=== PATIENT | male | born 1980 | race Caucasian/White ===

== ENCOUNTER 2018-07-26 11:58 | Emergency (ER) | payer BC ==
[2018-07-26] MEDS ORDERED: Sodium Chloride 0.9% 1,000 ML IV ONE (12:12)
--- NOTE | 2018-07-26 12:13 | EDM.PDOC ---
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 It is not a squeezing or pain, just discomfort, Pt said. He drinks power drinks and coffee and some water daily. All symptoms subsided except his left arm discomfort, which is minor. BP 136/68 RR 20- Pulse ox 98% on RA, Temp 36.8 pulse 87 Onset Date: 07/26/18 Onset Time: 11:00 Duration: Minutes: (10 sec), Improving Location: Reports: Head, Upper Extremity, Left (spots with discomfort is changing the location) Quality: Reports: Dull Severity: Mild Improves with: Reports: None Worsens with: Reports: None Associated Symptoms: Reports: Other (dizzy for 10 sec) - Related Data Allergies Allergy/AdvReac Type Severity Reaction Status Date / Time No Known Allergies Allergy Verified 07/26/18 12:14 Home Meds: Home Meds Omeprazole 20 mg PO DAILY 04/17/14 [History] Meclizine [Antivert] 25 mg PO Q6H PRN #14 tab.chew 07/26/18 [Rx] ED ROS GENERAL - Review of Systems Review Of Systems: See Below Constitutional: Reports: No Symptoms HEENT: Reports: No Symptoms Respiratory: Reports: No Symptoms Cardiovascular: Reports: No Symptoms Endocrine: Reports: No Symptoms GI/Abdominal: Reports: No Symptoms : Reports: No Symptoms Musculoskeletal: Reports: Muscle Pain (discomfort) Skin: Reports: No Symptoms Neurological: Reports: 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) Psychiatric: Reports: No Symptoms Hematologic/Lymphatic: Reports: No Symptoms Immunologic: Reports: No Symptoms ED EXAM, GENERAL - Physical Exam Exam: See Below Exam Limited By: No Limitations General Appearance: Alert, WD/WN, Mild Distress Eye Exam: Bilateral Eye: Nystagmus (bilat ) Ears: Normal External Exam Ear Exam: Bilateral Ear: Auricle Normal Nose: Normal Inspection, Normal Mucosa, No Blood Throat/Mouth: Normal Inspection, Normal Lips, Normal Voice, No Airway Compromise Head: Atraumatic, Normocephalic Neck: Normal Inspection, Supple, Non-Tender, Full Range of Motion Respiratory/Chest: No Respiratory Distress, Lungs Clear, Normal Breath Sounds, Chest Non-Tender, Respiratory Distress Cardiovascular: Normal Peripheral Pulses, Regular Rate, Rhythm, No Edema, No Gallop, No JVD, No Murmur, No Rub GI/Abdominal: Normal Bowel Sounds, Soft, Non-Tender, No Organomegaly, No Distention, No Abnormal Bruit, No Mass, Pelvis Stable (Male) Exam: No Hernia Rectal (Males) Exam: Deferred Back Exam: Normal Inspection Extremities: Normal Inspection Neurological: Alert, Oriented, CN II-XII Intact, Normal Cognition, Normal Gait Psychiatric: Normal Affect, Normal Mood Skin Exam: Warm, Dry, Intact, Normal Color, No Rash Lymphatic: No Adenopathy EKG INTERPRETATION EKG Date: 07/26/18 Time: 12:15 Rhythm: NSR Rate (Beats/Min): 89 [place]: Normal P-Wave: Present QRS: Normal ST-T: Normal QT: Normal Comparison: NA - No Prior EKG Course - Vital Signs Text/Narrative:: 37 y.o.w.m in prev healthy condition came initially to the walk in clinic and was transferred to the ed to to an episode of dizziness, lasting 10 sec 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 It is not a squeezing or pain, just discomfort, Pt said. He drinks power drinks and coffee and some water daily. All symptoms subsided except his left arm discomfort, which is minor. BP 136/68 RR 20- Pulse ox 98% on RA, Temp 36.8 pulse 87 PE: WNWD W M in NAD with minimal left arm discomfort localized, "moving". nl neuroexam and bilateral nystagmus Labs: CBC nl BMP nl execept BUN is 24. Glc 129 Troponin was nl ECG: NSR Impression: Dehydration, Viral syndrome, Vertigo Tx: NS, Antivert Reexam: Improved 80%, was ambulating fine on D/C Plan: D/C with instructions Last Recorded V/S: Last Vital Signs Temp 36.9 C 07/26/18 13:50 Pulse 78 07/26/18 13:50 Resp 18 07/26/18 13:50 BP 135/68 07/26/18 13:50 Pulse Ox 98 07/26/18 13:50 - Orders/Labs/Meds Orders: Active Orders 24 hr Category Date Time Status EKG 12 Lead [EK] Routine Ther 07/26/18 12:10 Ordered Labs: Laboratory Tests 07/26/18 07/26/18 07/26/18 Range/Units 12:15 12:15 12:15 WBC 7.7 (4.5-12.0) X10-3/uL RBC 5.56 (4.30-5.75) x10(6)uL Hgb 16.1 H (11.5-15.5) g/dL Hct 47.5 (30.0-51.3) % MCV 85.5 (80-96) fL MCH 29.0 (27.7-33.6) pg MCHC 33.9 (32.2-35.4) g/dL RDW 13.0 (11.5-15.5) % Plt Count 243 (125-369) X10(3)uL MPV 7.0 L (7.4-10.4) fL Neut % (Auto) 63.3 (46-82) % Lymph % (Auto) 30.0 (13-37) % [place] % (Auto) 4.5 (4-12) % Eos % (Auto) 2 (1.0-5.0) % Baso % (Auto) 0 (0-2) % Neut # (Auto) 5.0 (1.6-8.3) # Lymph # (Auto) 2.3 (0.6-5.0) # [place] # (Auto) 0.3 (0.0-1.3) # Eos # (Auto) 0.1 (0.0-0.8) # Baso # (Auto) 0.0 (0.0-0.2) # D-Dimer, Quantitative (0.0-0.59) mg/LFEU Sodium 141 (135-145) mmol/L Potassium 3.7 (3.5-5.3) mmol/L Chloride 104 (100-110) mmol/L Carbon Dioxide 30 (21-32) mmol/L BUN 24 H (7-18) mg/dL Creatinine 1.2 (0.70-1.30) mg/dL Est Cr Clr Drug Dosing TNP Estimated GFR (MDRD) > 60 (>60) BUN/Creatinine Ratio 20.0 (9-20) Glucose 129 H (80-116) mg/dL Lactic Acid 1.3 (0.4-2.2) mmol/L Calcium 9.2 (8.6-10.2) mg/dL Magnesium 2.0 (1.8-2.5) mg/dL Troponin I (<0.017-0.056) ng/mL Ethyl Alcohol (<0.03) % 07/26/18 07/26/18 Range/Units 12:15 12:15 WBC (4.5-12.0) X10-3/uL RBC (4.30-5.75) x10(6)uL Hgb (11.5-15.5) g/dL Hct (30.0-51.3) % MCV (80-96) fL MCH (27.7-33.6) pg MCHC (32.2-35.4) g/dL RDW (11.5-15.5) % Plt Count (125-369) X10(3)uL MPV (7.4-10.4) fL Neut % (Auto) (46-82) % Lymph % (Auto) (13-37) % [place] % (Auto) (4-12) % Eos % (Auto) (1.0-5.0) % Baso % (Auto) (0-2) % Neut # (Auto) (1.6-8.3) # Lymph # (Auto) (0.6-5.0) # [place] # (Auto) (0.0-1.3) # Eos # (Auto) (0.0-0.8) # Baso # (Auto) (0.0-0.2) # D-Dimer, Quantitative 0.35 (0.0-0.59) mg/LFEU Sodium (135-145) mmol/L Potassium (3.5-5.3) mmol/L Chloride (100-110) mmol/L Carbon Dioxide (21-32) mmol/L BUN (7-18) mg/dL Creatinine (0.70-1.30) mg/dL Est Cr Clr Drug Dosing Estimated GFR (MDRD) (>60) BUN/Creatinine Ratio (9-20) Glucose (80-116) mg/dL Lactic Acid (0.4-2.2) mmol/L Calcium (8.6-10.2) mg/dL Magnesium (1.8-2.5) mg/dL Troponin I < 0.017 L (<0.017-0.056) ng/mL Ethyl Alcohol < 0.03 (<0.03) % Meds: Medications Discontinued Medications Generic Name Dose Route Start Last Admin Trade Name Freq PRN Reason Stop Dose Admin Sodium Chloride 1,000 mls @ 999 mls/hr 07/26/18 12:12 07/26/18 12:33 Normal Saline IV 07/26/18 13:12 999 mls/hr .BOLUS ONE Administration Meclizine HCl 25 mg 07/26/18 13:43 07/26/18 13:58 Antivert PO 07/26/18 13:44 25 mg ONETIME ONE Administration Departure - Departure Time of Disposition: 13:37 Disposition: Home, Self-Care 01 Condition: Good Clinical Impression: Dehydration, Viral syndrome, Benign paroxysmal vertigo, bilateral - Discharge Information Prescriptions: Meclizine [Antivert] 25 mg PO Q6H PRN #14 tab.chew PRN Reason: for dizziness Referrals: Fracisco Shipman MD [Primary Care Provider] - Forms: ED Department Discharge, ED Return to Work/School Form Additional Instructions: Please increase water intake, please take antivert as recommended, please f/u, come back fi your symptom get worse acutely - My Orders Last 24 Hours: My Active Orders 07/26/18 12:10 EKG 12 Lead [EK] Routine - Assessment/Plan Last 24 Hours: My Active Orders 07/26/18 12:10 EKG 12 Lead [EK] Routine
[2018-07-26] MEDS ORDERED: Meclizine 25 MG Tab PO ONE (13:43)
== END 2018-07-26 14:00 | disposition home or self-care (01) ==
LOC: FB.ED 11:58
DX: H81.13 Benign paroxysmal vertigo, bilateral (principal); B34.9 Viral infection, unspecified; E86.0 Dehydration; Z79.899 Other long term (current) drug therapy
CPT/HCPCS: 36415; 80048; 83605; 83735; 84484; 85025; 85379; 93005; 96360; 99285; A9270; G0480; J7030